=== PATIENT | female | born 1985 | race Caucasian/White ===

== ENCOUNTER 2017-04-26 15:03 | Emergency (ER) | payer SELFPAY ==
[2017-04-26] MEDS ORDERED: Ketorolac INJ* 30 MG/ML 1 ML VIAL IV PUSH ONE (17:13)
[2017-04-26] MEDS ORDERED: NS 0.9% 1000 ML* 1,000 ML IV ONE (17:13)
[2017-04-26 17:57] LABS: Hematocrit 43 % (35-47); Hemoglobin 14.5 g/dl (12.0-16.0); Mean Corpuscular HGB Conc 34 g/dl (31-36); Mean Corpuscular Hemoglobin 30 pg (27-31); Mean Corpuscular Volume 87 fL (80-97); Mean Platelet Volume 10 um3 (7.4-10.4); Red Blood Count 4.91 10^6/ul (4.0-5.4); Red Cell Distribution Width 13 % (10.5-15); White Blood Count 6.5 10^3/ul (3.5-10.8)
[2017-04-26 18:13] LABS: Albumin 4.7 g/dL (3.2-5.2); BUN/Creatinine Ratio 18.8 (8-20); C Reactive Protein 1.17 mg/L (< 5.00); EGFR African American 127.6 (>60); EGFR Non-African American 99.2 (>60); Globulin 2.6 g/dL (2-4); Potassium 3.8 mmol/L (3.5-5.0); Total Bilirubin 0.5 mg/dL (0.2-1.0); Total Protein 7.3 g/dL (6.4-8.9)
[2017-04-26 19:30] LABS: Urine Bacteria Absent (Absent); Urine Bilirubin Negative (Negative); Urine Glucose Negative (Negative); Urine Nitrite Negative (Negative)
--- NOTE | 2017-04-26 19:46 | RAD ---
INDICATION: Left leg abdominal pain. COMPARISON: There are no prior studies available for comparison. TECHNIQUE: Multiple real-time images of the kidneys and urinary bladder were obtained. FINDINGS: The kidneys are normal in size shape and echogenicity. The right kidney measured 11.1 x 5.7 x 6.0 cm and the left kidney measured 11.7 x 6.0 x 5.7 cm. There is a focal area of increased echogenicity in the upper pole of the left kidney measuring 1.3 x 1.5 cm with some shadowing suspicious for a calculus. No hydronephrosis is seen. The bladder is normal in contour. No intraluminal abnormalities are seen. No bladder wall thickening is noted. There are bilateral ureteral jets present within the urinary bladder. The prevoid volume was 187 ml and a post void residual was 4 ml. The spleen is upper limits of normal in size without focal abnormality measuring 12.7 x 4.2 x 12.1 cm. IMPRESSION: PROBABLE LEFT RENAL CALCULUS, NO EVIDENCE FOR HYDRONEPHROSIS.
[2017-04-26] MEDS ORDERED: cefTRIAXone(*) 1 GM in NS 0.9% 50 ML* 50 ML IVPB ONE (20:36)
[2017-04-26 21:10] VITALS: BP 125/80
--- NOTE | 2017-04-28 23:21 | ED ---
Jeremie Luo Rebecca, scribed for Sorin Moore MD on 04/26/17 at 1648 . Abdominal Pain/Female - HPI Summary HPI Summary: Pt is a 31 y/o F referred from [facility] who presents to ED c/o L flank pain. Sx began suddenly 4 days ago and was initially intermittent, but has become constant. Pain is discrete to the L flank without radiation and is currently sharp and moderate, ranked 4/10. Sx aggravated by nothing, slightly alleviated by Aleve. Denies vaginal discharge and vaginal bleeding, dysuria, hematuria, fever and chills. Unsure of LNMP, citing unusual periods. PMHx kidney stones, renal cyst, pyelonephritis of the R kidney. Has a urologist in [place], [place]. - History of Current Complaint Chief Complaint: EDAbdPain Stated Complaint: ABD PAIN Time Seen by Provider: 04/26/17 16:46 Hx Obtained From: Patient Onset/Duration: Sudden Onset, Still Present Timing: Constant Severity Initially: Moderate Severity Currently: Moderate Pain Intensity: 4 Pain Scale Used: 0-10 Numeric Location: Flank - L flank Radiates: No Character: Sharp Aggravating Factor(s): Nothing Alleviating Factor(s): OTC Analgesics - Aleve Associated Signs and Symptoms: Positive: Negative, Other: - Negative chills. Negative: Fever, Urinary Symptoms, Vaginal Bleeding, Vaginal Discharge Allergies/Adverse Reactions: Allergies Allergy/AdvReac Type Severity Reaction Status Date / Time No Known Allergies Allergy Verified 04/26/17 17:50 PMH/Surg Hx/FS Hx/Imm Hx Endocrine/Hematology History: Denies: Hx Diabetes Cardiovascular History: Denies: Hx Coronary Artery Disease, Hx Hypertension History: Reports: Hx Kidney Stones, Other Problems/Disorders - Renal cyst ; episode of pyelonephrosis Infectious Disease History: No Infectious Disease History: Denies: Traveled Outside the [place] in Last 30 Days - Family History Known Family History: Negative: Cardiac Disease, Hypertension, Diabetes - Social History Occupation: Unemployed Alcohol Use: Rare Hx Substance Use: No Substance Use Type: Reports: None Hx Tobacco Use: No Smoking Status (MU): Never Smoked Tobacco Review of Systems Negative: Fever, Chills Negative: Erythema Negative: Sore Throat Negative: Chest Pain Negative: Shortness Of Breath, Cough Positive: Abdominal Pain - L flank pain. Negative: Vomiting, Nausea Positive: other - Negative vaginal bleeding. Negative: dysuria, discharge, hematuria Negative: Myalgia, Edema Negative: Rash Neurological: Other - Negative dizziness All Other Systems Reviewed And Are Negative: Yes Physical Exam - Summary Physical Exam Summary: Constitutional: Well-developed, Well-nourished, Alert. (-) Distressed Skin: Warm, Dry HENT: Normocephalic; Atraumatic Eyes: Conjunctiva normal Neck: Musculoskeletal ROM normal neck. (-) JVD, (-) Stridor, (-) Tracheal deviation Cardio: Rhythm regular, rate normal, Heart sounds normal; Intact distal pulses; The pedal pulses are 2+ and symmetric. Radial pulses are 2+ and symmetric. (-) Murmur Pulmonary/Chest wall: Effort normal. (-) Respiratory distress, (-) Wheezes, (-) Rales Abd: Soft, (-) Tenderness, (-) Distension, (-) Guarding, (-) Rebound Musculoskeletal: (-) Edema, Mild L CVA tenderness Lymph: (-) Cervical adenopathy Neuro: Alert, Oriented x3 Psych: Mood and affect Normal Triage Information Reviewed: Yes Vital Signs On Initial Exam: Initial Vitals Pulse Resp BP Pulse Ox 90 18 128/91 100 04/26/17 15:04 04/26/17 15:04 04/26/17 15:04 04/26/17 15:04 Vital Signs Reviewed: Yes Diagnostics - Vital Signs Vital Signs Pulse Resp BP Pulse Ox 04/26/17 15:04 90 18 128/91 100 - Laboratory Result Diagrams: 04/26/17 17:40 04/26/17 17:40 Lab Statement: Any lab studies that have been ordered have been reviewed, and results considered in the medical decision making process. - Ultrasound No standard instances Ultrasound Interpretation: Positive (See Comments) - Abdomen/Bladder US: PROBABLE LEFT RENAL CALCULUS, NO EVIDENCE FOR HYDRONEPHROSIS Ultrasound Interpretation Completed By: Radiologist Re-Evaluation - Re-Evaluation First Eval Re-Evaluation Time: 20:46 Change: Improved Comment: Pt is feeling well. She feels well enough to be D/C to home. Advised to follow up at [facility] in 2 days. Abdominal Pain Fem Course/Dx - Course Course Of Treatment: Pt is a 31 y/o F who presents to ED c/o moderate L flank pain for 4 days, initially intermittent but now constant. Denies vaginal discharge and vaginal bleeding, dysuria, hematuria, fever and chills. Understands the possiblity of a small ureteral stone that could not be visualized on US. No signs of ureteral obstruction. Pt will be D/C to home with a Dx of pyelonephritis and a follow up with [facility] in 2 days. - Diagnoses Provider Diagnoses: Pyelonephritis Discharge - Discharge Plan Condition: Stable Disposition: HOME Patient Education Materials: Kidney Infection (ED) Additional Instructions: Follow up at Urgent Care in 2 days. RETURN TO THE EMERGENCY DEPARTMENT FOR CHANGING OR WORSENING SYMPTOMS The documentation as recorded by the Jeremie dixon Rebecca accurately reflects the service I personally performed and the decisions made by , Sorin Moore MD.
== END 2017-04-26 21:12 | disposition home or self-care (01) ==
LOC: ED 15:03
DX: N12 Tubulo-interstitial nephritis, not specified as acute or chronic (principal); R10.84 Generalized abdominal pain
CPT/HCPCS: 36415; 76770; 80053; 81003; 81015; 83605; 83690; 85025; 86140; 87086; 96374; 99284; J0696; J1885

== ENCOUNTER 2017-05-05 14:39 | Emergency (ER) | payer SELFPAY ==
[2017-05-05 14:54] VITALS: BP 128/84
--- NOTE | 2017-05-05 16:39 | RAD ---
INDICATION: Left flank abdominal pain. COMPARISON: Comparison is made with a prior renal and bladder ultrasound from December 27, 2016. TECHNIQUE: Multiple real-time images of the kidneys and urinary bladder were obtained. FINDINGS: The kidneys are normal in size and shape. The right kidney measured 10.2 x 5.2 x 4.0 cm and the left kidney measured 10.9 x 6.1 x 4.9 cm. There is a focal area of increased echogenicity in the upper pole of the left kidney possibly representing a calculus although nonspecific. There is mild dilatation of the left renal pelvis and calyces suggestive of mild hydronephrosis. There is a cyst in the inferior pole of the left kidney measuring 1.3 x 1.3 x 1.4 cm. The bladder is normal in contour. No intraluminal abnormalities are seen. No bladder wall thickening is noted. There are bilateral ureteral jets present within the urinary bladder. The prevoid volume was 190 ml and a post void residual was 17 ml. IMPRESSION: 1. MILD NEW LEFT HYDRONEPHROSIS A CT OF THE ABDOMEN AND PELVIS MAY BE HELPFUL IN FURTHER EVALUATION. 2. POSSIBLE LEFT RENAL CALCULUS.
--- NOTE | 2017-05-05 16:57 | UC ---
Andreas Luo Alok, scribed for Garrick Yañez MD on 05/05/17 at 1521 . Abdominal Pain Female HPI - HPI Summary HPI Summary: 31F presents to [facility] with left flank pain. Pt states she was at the ED one week ago and discharged with a dx of kidney infection and rx of antibiotics. Pt had US and urine culture done. Pt has been taking antibiotics but states that her symptoms have not been improving. Pt states her left flank pain is worse when sitting still. Pt took one tramadol today [employer]. Pt also notes lymph node swelling. Pt denies vaginal discharge, dysuria, or hematuria. Pt denies rash. Pt denies BCP and is not worried about STIs. Pt denies diarrhea or constipation. Pt has h/o renal calculi and renal cysts. - History of Current Complaint Chief Complaint: UCGU Stated Complaint: KIDNEY INFECTION FOLLOW UP Time Seen by Provider: 05/05/17 15:03 Hx Obtained From: Patient Hx Last Menstrual Period: ~2 MONTHS (IRREGULAR) Onset/Duration: Lasting Weeks, Still Present Timing: Constant Severity Initially: Moderate Severity Currently: Moderate Pain Intensity: 4 Pain Scale Used: 0-10 Numeric Location: Other - left flank Aggravating Factor(s): Other: - sitting still Alleviating Factor(s): Medications - Toradol Associated Signs and Symptoms: Negative: Fever, Constipation, Vaginal Bleeding, Vaginal Discharge, Diarrhea Allergies/Adverse Reactions: Allergies Allergy/AdvReac Type Severity Reaction Status Date / Time No Known Allergies Allergy Verified 05/05/17 14:54 PMH/Surg Hx/FS Hx/Imm Hx GI/ History: Kidney Stones - Surgical History Surgical History: Yes Surgery Procedure, Year, and Place: LITHOTRIPSY, ABD RECONSTRUCTION AN FOR CONGENITAL DEFECT - Family History Known Family History: Negative: Cardiac Disease, Hypertension, Diabetes - Social History Occupation: Employed Full-time Alcohol Use: Occasionally Substance Use Type: None Smoking Status (MU): Never Smoked Tobacco Review of Systems Constitutional: Negative Skin: Negative Gastrointestinal: Abdominal Pain - left flank pain Genitourinary: Negative All Other Systems Reviewed And Are Negative: Yes Physical Exam Triage Information Reviewed: Yes Appearance: Well-Appearing, No Pain Distress Vital Signs: Initial Vital Signs Temp 99.2 F 05/05/17 14:50 Pulse 92 05/05/17 14:50 Resp 16 05/05/17 14:50 BP 128/84 05/05/17 14:50 Pulse Ox 97 05/05/17 14:50 Vital Signs Reviewed: Yes Eyes: Positive: Other: - EOMI, VALERIA ENT Exam: Normal Neck: Positive: Supple, Nontender Respiratory: Positive: Lungs clear, Normal breath sounds Cardiovascular: Positive: RRR Abdomen Description: Positive: Soft, Other: - Left lateral abdominal tenderness below ribs to left flank. No rash. No tenderness anterior abdomin. Bowel Sounds: Positive: Present Musculoskeletal Exam: Normal Musculoskeletal: Positive: Strength Intact, ROM Intact Neurological Exam: Normal Neurological: Positive: Other: - Alert & Oriented x3. Sensory/Motor intact. Psychological: Positive: Other: - affect/mood appropriate Skin: Positive: Other - warm, dry, reflects adequate perfusion Diagnostics - Laboratory Diagnostic Studies Completed/Ordered: abd/bladder US - IMPRESSION: 1. MILD NEW LEFT HYDRONEPHROSIS A CT OF THE ABDOMEN AND PELVIS MAY BE HELPFUL IN FURTHER. EVALUATION. 2. POSSIBLE LEFT RENAL CALCULUS. Abd Pain Female Course/Dx - Course Course Of Treatment: Pt medications reviewed this visit. LABS AND URINE ARE PENDING. US REPORT DISCUSSED WITH PATIENT. DISCUSSED GETTING A CT TODAY BUT, PATIENT WILL ATTEMPT TO CONTACT HER UROLOGIST FIRST. SHE WILL CALL HER UROLOGIST FOR FOLLOW UP TODAY OR TOMORROW. SHE WILL GO TO THE ED IF SHE CANNOT CONTACT HER UROLOGIST OR IF THE PAIN WORSENS OR WITH ANY QUESTIONS OR CONCERNS. - Differential Dx/Diagnosis Provider Diagnoses: LEFT HYDRONEPHROSIS AND FLANK PAIN. Discharge - Discharge Plan Condition: Stable Disposition: HOME Patient Education Materials: Flank Pain (ED), Hydronephrosis (ED) Referrals: Javier Del Valle MD [Primary Care Provider] - Additional Instructions: CALL YOUR UROLOGIST TODAY OR TOMORROW FOR FOLLOW UP OF YOUR FLANK PAIN AND HYDRONEPHROSIS. GO TO THE EMERGENCY DEPARTMENT FOR ANY CONTINUATION OR WORSENING OF YOUR PAIN OR ANY QUESTIONS OR CONCERNS. The documentation as recorded by the Andreas dixon Alok accurately reflects the service I personally performed and the decisions made by , Garrick Yañez MD.
[2017-05-05 18:32] LABS: Hematocrit 43 % (35-47); Hemoglobin 14.6 g/dl (12.0-16.0); Mean Corpuscular HGB Conc 34 g/dl (31-36); Mean Corpuscular Hemoglobin 30 pg (27-31); Mean Corpuscular Volume 87 fL (80-97); Mean Platelet Volume 10 um3 (7.4-10.4); Red Blood Count 4.91 10^6/ul (4.0-5.4); Red Cell Distribution Width 13 % (10.5-15); White Blood Count 6.8 10^3/ul (3.5-10.8)
[2017-05-05 18:37] LABS: Urine Bilirubin Negative (Negative); Urine Glucose Negative (Negative); Urine Nitrite Negative (Negative)
[2017-05-05 18:53] LABS: Albumin 4.8 g/dL (3.2-5.2); BUN/Creatinine Ratio 17.1 (8-20); C Reactive Protein 1.38 mg/L (< 5.00); Calcium 9.8 mg/dL (8.6-10.3); EGFR African American 114.2 (>60); EGFR Non-African American 88.8 (>60); Globulin 2.5 g/dL (2-4); Potassium 4.2 mmol/L (3.5-5.0); Total Bilirubin 0.6 mg/dL (0.2-1.0); Total Protein 7.3 g/dL (6.4-8.9)
== END 2017-05-05 17:00 | disposition home or self-care (01) ==
LOC: UCEAST 14:39
DX: N13.30 Unspecified hydronephrosis (principal); Z87.442 Personal history of urinary calculi; R10.32 Left lower quadrant pain
CPT/HCPCS: 36415; 76770; 80053; 81003; 85025; 86140; 87086; 99211; G0463